=== PATIENT | female | born 1985 | race Caucasian/White ===

== ENCOUNTER 2018-02-12 12:10 | Emergency (ER) | payer OTHER ==
[~2018-02-12] VITALS: Ht 162.6 cm; Wt 74.8 kg
[~2018-02-12 12:10] MED LIST: FLEXERIL10 MG PO; STERAPRED5 MG/DOSE- PO; TORADOL10 MG PO
[2018-02-12] MEDS ORDERED: TOPROL XL25 M1 PO (12:32)
== END 2018-02-12 14:07 | disposition home or self-care (01) ==
LOC: ER 12:10
DX: R07.89 Other chest pain (principal)